=== PATIENT | female | born 1965 | race Caucasian/White ===

== ENCOUNTER 2020-02-04 14:07 | Emergency (ER) | payer BC, SELFPAY ==
[2020-02-04 14:27] VITALS: BP 138/89; PULSE 72; RESP 20; TEMP 36.7; O2SAT 99; BMI 28.1
--- NOTE | 2020-02-04 15:03 | HMH.EDUTC ---
[facility] [place]ression: Strep sore throat Disposition: Home, Self-Care Condition on Discharge: Good Instructions: DI for Strep Throat Additional Instructions: Start antibiotics today be sure to take it as ordered with the full length of time although you should start feeling better in 24-48 hours. Change toothbrush and toothpaste 24-48 hours after starting antibiotics Tylenol or Motrin as needed for fever or pain Encourage fluids, water, Gatorade, Powerade, try cold fluids, popsicles, ice cream will make it feel better You are contagious for 24 hours. Avoid kissing anyone, no eating or drinking after anyone. You are contagious. Follow-up the ER for new or worsening symptoms or no noticeable improvement over the next 24-48 hours. Follow-up with PCP this week. Prescriptions: Azithromycin [Zithromax 250mg tab] 250 mg PO DIRECTED #6 tab Transmission Status: Pending to [facility] Referrals: Presley Parker [Primary Care Provider] - Time of Disposition: 15:12 Medical Decision Making - Len Inquiry Pt receiving controlled substance: No Vital Signs: 02/04/20 14:27 Temperature 98.1 F Temperature Source Oral Pulse Rate [Right Brachial] 72 Respiratory Rate 20 Blood Pressure [Right Arm] 138/89 Blood Pressure Mean [Right Arm] 105 Blood Pressure Source [Right Arm] Automatic Cuff Blood Pressure Position [Right Arm] Sitting 02 Sat by Pulse Oximetry 99 Oxygen Delivery Method Room Air [facility] [place] - General Chief complaint: [facility] Stated complaint: poss strep Time Seen by Provider: 02/04/20 15:03 Mode of Arrival: Ambulatory Source of Information: Patient Limitations: No Limitations Description of Symptoms (Recalled from Triage Doc. by RN): PATIENT C/O SORE THROAT AND HEADACHE X 1 WEEK. DENIES FEVER. STATES HER GRANDSON WAS POSITIVE FOR STREP YESTERDAY HEENT Symptoms (Recalled from RN notes): Yes Resp Symptoms (Recalled from RN notes): No Skin Symptoms (Recalled from RN notes): No MS Symptoms (Recalled from RN notes): No Functional Status (Recalled from RN notes): WNL - History of Present Illness Provider Complaint: 54 yr old female presnets for sore throat and headache for 2 days. both grandsons pos for strep last pm. - Related Data Previous Rx's Medication Instructions Recorded Azithromycin [Zithromax 250mg 250 mg PO DIRECTED #6 tab 02/04/20 tab] Allergies Allergy/AdvReac Type Severity Reaction Status Date / Time morphine Allergy Mild Verified 11/24/17 12:32 - Worker's Comp Is this a Worker's Comp case?: No [facility] History - Hepatitis A Screen Drug use history?: No High risk sexual behaviors?: No History of sexually transmitted infection?: No Currently employed?: No Childcare worker?: No Do you have indoor plumbing?: Yes Do you have electricity?: Yes Attestation statement:: This patient has been screened for Hepatitis A risk factors. I have reviewed the patient's past medical history: Yes Other Surgeries: Yes: Other Fractures: Yes - Social History Smoking Status: Never smoker Alcohol Intake: never Substance Use Type: denies use Occupational Status: other Family Hx:: Diabetes, Hypertension, Hyperlipidemia ROS Obtained: Yes Systems reviewed as appropriate & no additional complaints - Constitutional Constitutional: Reports system reviewed and no additional complaints, except as docu, Denies body ache - Eyes Eyes: Reports system reviewed and no additional complaints, except as docu, Denies blurry vision - ENT Ears, Nose, Mouth, and Throat: Reports system reviewed and no additional complaints, except as docu, Denies lip swelling - Cardiovascular Cardiovascular: Reports system reviewed and no additional complaints, except as docu, Denies chest pain - Respiratory Respiratory: Yes system reviewed and no additional complaints, except as docu, No chest congestion - Gastrointestinal Gastrointestingal: Reports: system reviewe
[2020-02-04 15:07] LABS: UTC Strep Screen (Rapid) Negative (Negative)
[2020-02-04 15:30] VITALS: BP 138/89; PULSE 72; RESP 20; TEMP 36.7; O2SAT 99
== END 2020-02-04 15:31 | disposition home or self-care (01) ==
PROVIDERS: Emergency Provider Nurse Practitioner Family; PCP Family Medicine
DX: J02.0 Streptococcal pharyngitis (principal)
CPT/HCPCS: 87880; 99201

== ENCOUNTER 2021-03-10 10:26 | Emergency (ER) | payer BC, SELFPAY ==
[2021-03-10 12:35] VITALS: BMI 28.1
[2021-03-10 12:37] VITALS: BP 121/88; PULSE 98; RESP 16; TEMP 36.8; O2SAT 98; BMI 28.1
--- NOTE | 2021-03-10 13:08 | HMH.EDUTC ---
[facility] – [place] Dis[place] Clinical Impression: Sinusitis Qualifiers: Sinusitis location: unspecified location Chronicity: unspecified Qualified Code(s): J32.9 - Chronic sinusitis, unspecified Disposition: Home, Self-Care Condition on Discharge: Good Instructions: Sinusitis, DI for Sinusitis Additional Instructions: *Monitor Temp, Over the counter Motrin or Tylenol as directed/as needed Tylenol every 4 hours and Motrin every 6 hours (as long as your family doctor has told you that you can take it) for fever or pain. and straight to ER if unable to lower temp less than 101.0 after medication given *Throat Lozenges *Warm fluids like tea with honey may help to soothe the throat and help with nasal congestion *Sleep elevated *Humidifier/Vaporizer *Flonase 2 sprays in each nostril daily but be aware that it may take 2-3 days before you notice improvement Follow up IMMEDIATELY for new or worsening symptoms or no Noticeable improvement over the next 48-72 hours. 911 for difficulty breathing or swallowing Prescriptions: Amoxicillin/Potassium Clav [Augmentin 875-125 Tablet] 1 tab PO Q12H 10 Days #20 tab Transmission Status: Pending to [facility] Fluticasone Propionate [Flonase 50mcg nasal spray 16gm] 1 spr NS DAILY #1 ml Transmission Status: Pending to [facility] Referrals: Sonia Douglas [Primary Care Provider] - As needed Time of Disposition: 13:15 Medical Decision Making - Len Inquiry Pt receiving controlled substance: No Len was queried for this patient: No Vital Signs: 03/10/21 12:37 Temperature 98.2 F Temperature Source Oral Pulse Rate [Radial] 98 H Respiratory Rate 16 Blood Pressure [Right Arm] 121/88 Blood Pressure Mean [Right Arm] 99 Blood Pressure Position [Right Arm] Sitting 02 Sat by Pulse Oximetry 98 Oxygen Delivery Method Room Air - Lab Data Lab results reviewed: Yes: I reviewed the patient's lab results. Lab Results 03/10/21 12:34: Influenza Type A Ag Negative, Influenza Type B Ag Negative [facility] [place] HPI - General Stated complaint: MATA, runny nose, congestion Time Seen by Provider: 03/10/21 13:08 Mode of Arrival: Ambulatory Source of Information: Patient Limitations: No Limitations Description of Symptoms (Recalled from Triage Doc. by RN): to [facility] with c/o cough, congestion, body aches x 2 weeks. pt states she only wants a flu test, pt refused covid swab. HEENT Symptoms (Recalled from RN notes): No Resp Symptoms (Recalled from RN notes): Yes Skin Symptoms (Recalled from RN notes): No MS Symptoms (Recalled from RN notes): No Functional Status (Recalled from RN notes): na - History of Present Illness Provider Complaint: Patient states that she has been having body aches, nasal congestion with sinus pressure under her eyes and teeth, and cough for about 2 weeks and she wanted to get tested for the flu States that she doesnt want a COVID test she has not been around anyone and feels like she may have the flu - Related Data Previous Rx's Medication Instructions Recorded Azithromycin [Zithromax 250mg 250 mg PO DIRECTED #6 tab 02/04/20 tab] Amoxicillin/Potassium Clav 1 tab PO Q12H 10 Days #20 tab 03/10/21 [Augmentin 875-125 Tablet] Fluticasone Propionate [Flonase 1 spr NS DAILY #1 ml 03/10/21 50mcg nasal spray 16gm] Allergies Allergy/AdvReac Type Severity Reaction Status Date / Time morphine Allergy Mild Verified 11/24/17 12:32 - Worker's Comp Is this a Worker's Comp case?: No [facility] History - Hepatitis A Screen Drug use history?: No High risk sexual behaviors?: No History of sexually transmitted infection?: No Currently employed?: No Childcare worker?: No Do you have indoor plumbing?: Yes Do you have electricity?: Yes Attestation statement:: This patient has been screened for Hepatitis A risk factors. I have reviewed the patient's past medical history: Yes Other Surgeries: Yes: Other Fractures: Yes - Social History Smoking St
[2021-03-10 13:21] VITALS: BP 121/88; PULSE 98; RESP 16; TEMP 36.8; O2SAT 98
== END 2021-03-10 13:24 | disposition home or self-care (01) ==
PROVIDERS: Emergency Provider Nurse Practitioner; PCP Nurse Practitioner Family
DX: J32.9 Chronic sinusitis, unspecified (principal)
CPT/HCPCS: 87275; 87276; 99202; G0463

== ENCOUNTER 2021-03-25 14:03 | Emergency (ER) | payer BC, SELFPAY ==
[2021-03-25 14:26] VITALS: BP 148/89; PULSE 115; RESP 22; TEMP 38.3; O2SAT 96; BMI 27.2
[2021-03-25 14:43] LABS: UTC Strep Screen (Rapid) Negative (Negative)
[2021-03-25 14:53] LABS: Adenovirus,PCR Not Detected (NotDetected); Bordetella Pertussis Not Detected (NotDetected); Chlamydophila Pneumoniae, PCR Not Detected (NotDetected); Coronavirus 229E Not Detected (NotDetected); Coronavirus NL63 Not Detected (NotDetected); Coronavirus OC43 Not Detected (NotDetected); Coronovirus HKU1,PCR Not Detected (NotDetected); Human Metapneumovirus Not Detected (NotDetected); Influenza A, PCR Not Detected (NotDetected); Influenza AH1, 2009 Not Detected (NotDetected); Influenza AH1, PCR Not Detected (NotDetected); Influenza AH3,PCR Not Detected (NotDetected); Influenza B, PCR Not Detected (NotDetected); Mycoplasma Pneumoniae, PCR Not Detected (NotDetected); Parainfluenza 1, PCR Not Detected (NotDetected); Parainfluenza 2, PCR Not Detected (NotDetected); Parainfluenza 3, PCR Not Detected (NotDetected); Parainfluenza 4, PCR Not Detected (NotDetected); Respiratory Syncytial Virus Not Detected (NotDetected); Rhinovirus/Enterovirus Not Detected (NotDetected)
--- NOTE | 2021-03-25 15:21 | HMH.EDUTC ---
[facility] [place] Disposition Clinical Impression: Sinusitis Qualifiers: Sinusitis location: frontal Chronicity: acute Recurrence: non-recurrent Qualified Code(s): J01.10 - Acute frontal sinusitis, unspecified Disposition: Home, Self-Care Condition on Discharge: Good Instructions: Sinusitis, DI for Sinusitis Additional Instructions: Drink plenty of fluids. Take tylenol or ibuprofen for pain or fever. Take the medications as directed. Follow up with your regular doctor. GO TO THE ER FOR ANY WORSENING SYMPTOMS Quarantine until you know the results of your covid-19 test. If it is positive, the health department should call you and give you further instructions about your length of Quarantine and other things. Notify your school or workplace of your results and follow their instructions regarding return to work/school. Don't start the oral steroids until tomorrow, since you had the shot here today. Prescriptions: methylPREDNISolone [Medrol] 4 mg PO DIRECTED 6 Days #21 packet Transmission Status: Pending to [facility] guaiFENesin [Mucinex 600mg tablet] 1 - 2 tab PO BIDP PRN #30 tab PRN Reason: Congestion [facility]: [facility] Azithromycin [Z-Logan 250mg Tab*] 250 mg PO UD DOSE PK #6 tab Transmission Status: Pending to [facility] Referrals: Provider,Referral, [Primary Care Provider] - Forms: Work/School Release Time of Disposition: 15:26 Medical Decision Making - Medical Records Medical records reviewed: No: I reviewed the patient's medical records. - Len Inquiry Pt receiving controlled substance: No Vital Signs: 03/25/21 14:26 Temperature 100.9 F H Temperature Source Oral Pulse Rate [Left] 115 H Respiratory Rate 22 Blood Pressure [Right Arm] 148/89 H Blood Pressure Mean [Right Arm] 108 02 Sat by Pulse Oximetry 96 - Lab Data Lab results reviewed: Yes: I reviewed the patient's lab results. Lab Results 03/25/21 14:32: Strep Scn Rapid Clinic Negative Orders (Tests/Meds): ED MEDICATIONS Discontinued Medications Generic Name Dose Route Start Last Admin Trade Name Freq PRN Reason Stop Dose Admin Methylprednisolone Sodium Succinate 125 mg 03/25/21 14:52 03/25/21 15:11 Methylprednisolone Sod Succ 125mg Vial IM 03/25/21 14:53 125 mg ONCE ONE Administration ORDERS Category Date Time Status Full Resp Panel w/COVID ([facility]) Routine Lab 03/25/21 14:39 Received Strep Screen Confirmation Stat Micro 03/25/21 14:32 Received [facility] UTC HPI - General Stated complaint: strep test, flu test, covid test Time Seen by Provider: 03/25/21 15:00 Mode of Arrival: Ambulatory Source of Information: Patient Limitations: No Limitations Description of Symptoms (Recalled from Triage Doc. by RN): pt c/o MATA, congestion and cough x4 weeks. HEENT Symptoms (Recalled from RN notes): Yes (congstion and MATA) Resp Symptoms (Recalled from RN notes): Yes (cough) Skin Symptoms (Recalled from RN notes): No MS Symptoms (Recalled from RN notes): No Functional Status (Recalled from RN notes): na - History of Present Illness Provider Complaint: She states that for the past 3 weeks she has been sick. She had a negative covid test, negative strep test. - Related Data Previous Rx's Medication Instructions Recorded Azithromycin [Zithromax 250mg 250 mg PO DIRECTED #6 tab 02/04/20 tab] Amoxicillin/Potassium Clav 1 tab PO Q12H 10 Days #20 tab 03/10/21 [Augmentin 875-125 Tablet] Fluticasone Propionate [Flonase 1 spr NS DAILY #1 ml 03/10/21 50mcg nasal spray 16gm] Azithromycin [Z-Logan 250mg Tab*] 250 mg PO UD DOSE PK #6 tab 03/25/21 guaiFENesin [Mucinex 600mg tablet] 1 - 2 tab PO BIDP PRN #30 tab 03/25/21 methylPREDNISolone [Medrol] 4 mg PO DIRECTED 6 Days #21 03/25/21 packet Allergies Allergy/AdvReac Type Severity Reaction Status Date / Time morphine Allergy Mild Verified 11/24/17 12:32 - Worker's Comp Is
[2021-03-25 15:32] VITALS: BP 148/89; PULSE 115; RESP 20; TEMP 38.3
[2021-03-25 16:14] LABS: Coronavirus 19, PCR Detected (NotDetected)
[2021-03-25 19:47] LABS: UTC Influenza A Antigen Negative (Negative); UTC Influenza B Antigen Negative (Negative)
== END 2021-03-25 15:36 | disposition home or self-care (01) ==
PROVIDERS: Emergency Provider Nurse Practitioner Family
DX: U07.1 COVID-19 (principal); J01.10 Acute frontal sinusitis, unspecified
CPT/HCPCS: 87581; 87632; 87798; 87804; 87880; 96372; 99202; C9803; G0463; U0003; U0005

== ENCOUNTER 2021-08-25 16:23 | Emergency (ER) | payer BC, SELFPAY ==
[2021-08-25 17:36] VITALS: BP 150/80; PULSE 68; RESP 16; TEMP 36.9; O2SAT 99; BMI 28.1
--- NOTE | 2021-08-25 18:15 | HMH.EDUTC ---
[facility] – [place] Disposition Clinical Impression: Jaw pain Serous otitis media Qualifiers: Chronicity: acute Laterality: right Recurrence: non-recurrent Qualified Code(s): H65.01 - Acute serous otitis media, right ear Disposition: Home, Self-Care Condition on Discharge: Good Instructions: Middle Ear Infection, DI for Sinusitis Additional Instructions: Drink plenty of fluids. Take tylenol or ibuprofen for pain or fever. Take the medications as directed. Follow up with your regular doctor. Follow up with your dentist as scheduled. GO TO THE ER FOR ANY WORSENING SYMPTOMS Don't start the oral steroids until tomorrow, since you had the shot here today. Prescriptions: methylPREDNISolone [Medrol] 4 mg PO DIRECTED 6 Days #21 packet Transmission Status: Received by [facility] Cefdinir [Omnicef 300mg Capsule] 300 mg PO BID #20 cap Transmission Status: Received by [facility] Referrals: Sonia Douglas [Primary Care Provider] - Time of Disposition: 18:34 Medical Decision Making - Medical Records Medical records reviewed: No: I reviewed the patient's medical records. - Len Inquiry Pt receiving controlled substance: No Vital Signs: 08/25/21 17:36 08/25/21 18:47 Temperature 98.5 F 98.5 F Temperature Source Oral Oral Pulse Rate 68 Pulse Rate [Right Brachial] 68 Respiratory Rate 16 16 Blood Pressure 150/80 H Blood Pressure [Right Arm] 150/80 H Blood Pressure Mean [Right Arm] 103 Blood Pressure Source Automatic Cuff Blood Pressure Source [Right Arm] Automatic Cuff Blood Pressure Position Sitting Blood Pressure Position [Right Arm] Sitting 02 Sat by Pulse Oximetry 99 Oxygen Delivery Method Room Air Room Air - Lab Data Lab results reviewed: Yes: I reviewed the patient's lab results. Orders (Tests/Meds): ED MEDICATIONS Discontinued Medications Generic Name Dose Route Start Last Admin Trade Name Freq PRN Reason Stop Dose Admin Methylprednisolone Sodium Succinate 125 mg 08/25/21 18:32 08/25/21 18:41 Methylprednisolone Sod Succ 125mg Vial IM 08/25/21 18:33 125 mg ONCE ONE Administration [facility] [place] HPI - General Stated complaint: R side ear and jaw pain Time Seen by Provider: 08/25/21 18:15 Mode of Arrival: Ambulatory Source of Information: Patient Limitations: No Limitations Description of Symptoms (Recalled from Triage Doc. by RN): pt. states she had a filling 07/14/21 and has had some jaw discomfort since, in the last week her pain has gotten worse and she has had more ear/ jaw popping, right ear pain, sinus pressure. HEENT Symptoms (Recalled from RN notes): Yes Resp Symptoms (Recalled from RN notes): No Skin Symptoms (Recalled from RN notes): No MS Symptoms (Recalled from RN notes): No Functional Status (Recalled from RN notes): n/a - History of Present Illness Provider Complaint: She states that she has been having right jaw pain, right sinus tenderness and right ear pressure for the past 1 week. She had dental work done on a tooth in her right lower jaw around 1 month ago. She does not believe it is related to this, but she does have an appointment with her dentist coming up in 3 days. She came here to be checked for a sinus or ear infection. - Related Data Home Medications Medication Instructions Recorded Confirmed Cholecalciferol (Vitamin D3) 1,000 unit PO DAILY 08/25/21 08/25/21 [Vitamin D3 1,000 Unit Cap] Fluticasone Propionate [Flonase 1 spray NS DAILY PRN 08/25/21 08/25/21 Allergy Relief NS] Magnesium 200 mg PO DAILY 08/25/21 08/25/21 Multivitamin 1 each PO DAILY 08/25/21 08/25/21 Rosuvastatin Calcium [Crestor 10mg 10 mg PO DAILY 08/25/21 08/25/21 Tablets] Valacyclovir HCl [Valacyclovir] 1,000 mg PO DAILY 08/25/21 08/25/21 Previous Rx's Medication Instructions Recorded Cefdinir [Omnicef 300mg Capsule] 300 mg PO BID #20 cap 08/25/21 methylPREDNISolone [Medrol] 4 mg PO DIRECTED 6 Days #21 08/25/21 packet
[2021-08-25 18:47] VITALS: BP 150/80; PULSE 68; RESP 16; TEMP 36.9; O2SAT 99
== END 2021-08-25 18:48 | disposition home or self-care (01) ==
PROVIDERS: Emergency Provider Nurse Practitioner Family; PCP Nurse Practitioner Family
DX: H65.01 Acute serous otitis media, right ear (principal)
CPT/HCPCS: 96372; 99202; G0463

== ENCOUNTER 2022-05-29 10:33 | Emergency (ER) | payer BC, SELFPAY ==
[2022-05-29 13:00] VITALS: BP 141/90; PULSE 86; RESP 18; TEMP 37.1; O2SAT 99; BMI 26.8
--- NOTE | 2022-05-29 13:05 | EXP.UTC ---
Discharge Plan Disposition Patient Disposition: Home, Self-Care Condition: Good Prescriptions Prescriptions: New azithromycin [Zithromax] 250 mg tablet 250 mg PO UD DOSE PK Qty: 6 0RF Rx Instructions: Take two (2) tablets today, then one (1) tablet days #2 thru #5 benzonatate [benzonatate] 100 mg capsule 100 mg PO TIDP PRN (Reason: Cough) Qty: 30 0RF oseltamivir [Tamiflu] 75 mg capsule 75 mg PO BID Qty: 10 0RF methylprednisolone 4 mg Tablets,Dose Pack 4 mg PO DIRECTED Qty: 21 0RF No Action multivitamin 1 EACH tablet 1 each PO DAILY valacyclovir 1,000 MG tablet 1,000 mg PO DAILY fluticasone propionate 9.9 ML spray,suspension 1 spray NS DAILY PRN (Reason: Allergic Reaction) cholecalciferol (vitamin D3) 1,000 UNIT capsule 1,000 unit PO DAILY magnesium 200 MG tablet 200 mg PO DAILY rosuvastatin 10 MG tablet 10 mg PO DAILY methylprednisolone 4 MG tablets,dose pack 4 mg PO DIRECTED 6 Days Qty: 21 0RF cefdinir 300 MG capsule 300 mg PO BID Qty: 20 0RF Referrals Follow up/Referrals: Leah Ferguson PA [Primary Care Provider] - See instructions Activity Restrictions/Add. Instructions Additional Instructions/Restrictions: Drink plenty of fluids. Take tylenol or ibuprofen for pain or fever. Take the medications as directed. Follow up with your regular doctor. GO TO THE ER FOR ANY WORSENING SYMPTOMS Clinical Impressions Clinical Impression: Acute viral syndrome, Influenza, Bronchitis Instructions Patient Instructions: Influenza, DI for Acute Bronchitis, Oseltamivir Discharge ED Provider: Rodri Sandoval [facility] General Stated complaint: body aches, cough, sore throat, congestion Time Seen by Provider: 05/29/22 13:05 History of Present Illness Provider Complaint: She states that for the past 4 days she has had a scratchy sore throat, low grade fever, chills, productive cough and she has felt bad. Her tested positive for influenza a 2 days ago. Related Data Home Medications Medication Instructions Recorded Confirmed cholecalciferol (vitamin D3) 25 1,000 unit PO DAILY Supplement 08/25/21 08/25/21 mcg (1,000 unit) capsule fluticasone propionate 50 1 spray NS DAILY PRN Allergic 08/25/21 08/25/21 mcg/actuation nasal Reaction spray,suspension magnesium 200 mg tablet 200 mg PO DAILY Supplement 08/25/21 08/25/21 multivitamin 1 each PO DAILY Supplement 08/25/21 08/25/21 rosuvastatin 10 mg tablet 10 mg PO DAILY Cholesterol 08/25/21 08/25/21 valacyclovir 1 gram tablet 1,000 mg PO DAILY HSV 08/25/21 08/25/21 Previous Rx's Medication Instructions Recorded cefdinir 300 mg capsule 300 mg PO BID #20 caps 08/25/21 methylprednisolone 4 mg tablets in 4 mg PO DIRECTED 6 days #21 08/25/21 a dose pack packets azithromycin 250 mg tablet 250 mg PO UD DOSE PK #6 tabs 05/29/22 (Zithromax) benzonatate 100 mg capsule 100 mg PO TIDP PRN Cough #30 caps 05/29/22 methylprednisolone 4 mg tablets in 4 mg PO DIRECTED #21 tabs 05/29/22 a dose pack oseltamivir 75 mg capsule (Tamiflu) 75 mg PO BID #10 caps 05/29/22 Allergies Allergy/AdvReac Type Severity Reaction Status Date / Time morphine Allergy Mild Verified 08/25/21 16:41 [facility] Medical History Hyperlipidemia Social History Smoking Status: Never smoker alcohol intake: never substance use type: denies use current occupational status: other Travel in the last 8 weeks: None ROS Obtained: Yes All systems reviewed & no additional complaints except as documented Constitutional Constitutional: Reports chills and Reports fever(s) Eyes Eyes: Denies eye discharge ENT Ears, Nose, Mouth, and Throat: Reports as per HPI Cardiovascular Cardiovascular: Denies chest pain Respiratory Respiratory: Denies shortness of breath, Denies chest
[2022-05-29 13:18] VITALS: BP 141/90; PULSE 86; RESP 18; TEMP 37.1; O2SAT 99
[2022-05-29 13:21] LABS: UTC Influenza A Antigen Positive (Negative); UTC Influenza B Antigen Negative (Negative)
== END 2022-05-29 13:23 | disposition home or self-care (01) ==
PROVIDERS: Emergency Provider Nurse Practitioner Family; PCP Physician Assistant
DX: J10.1 Influenza due to other identified influenza virus with other respiratory manifestations (principal); J20.9 Acute bronchitis, unspecified
CPT/HCPCS: 87804; 99212; G0463